=== PATIENT | male | born 1950 | race Caucasian/White ===

== ENCOUNTER 2021-01-18 07:35 | Emergency (ER) | payer MEDICARE, OTHER ==
[2021-01-18] MEDS ORDERED: KEFLEX750 MG PO (08:48)
[2021-01-18] MEDS ORDERED: NORCO 5-325 TA1 EACH PO (08:48)
== END 2021-01-18 09:03 | disposition home or self-care (01) ==
LOC: FER 07:35
DX: L02.31 Cutaneous abscess of buttock (principal); I10 Essential (primary) hypertension; Z88.0 Allergy status to penicillin; Z79.899 Other long term (current) drug therapy